=== PATIENT | male | born 1980 | race Caucasian/White ===

== ENCOUNTER 2016-12-17 18:17 | Emergency (ER) | payer OTHER ==
[2016-12-17 18:26] VITALS: BP 152/101
[2016-12-17] MEDS ORDERED: DIPH/PERTUSS(ACELL)/TETANUS VAC/PF 0.5 ML SYR (>=10YO) IM ONE (18:39)
[2016-12-17] MEDS ORDERED: HYDROCODONE/ACETAMINOPHEN 10-325 MG TABLET PO ONE (18:47)
[2016-12-17] MEDS ORDERED: LIDOCAINE 1% INJ-PF (10 MG/ML) 30 ML SDV INJ ONE ×2 (19:05→20:11)
[2016-12-17] MEDS ORDERED: CEFAZOLIN INJ 1 GM VIAL IM ONE (19:45)
--- NOTE | 2016-12-17 19:52 | RADIOLOGY REPORT (SQ) ---
EXAM DESCRIPTION: FINGER LEFT COMPLETED DATE/TIME: 12/17/2016 7:24 pm REASON FOR STUDY: table saw vs finger COMPARISON: None. NUMBER OF VIEWS: Three views. TECHNIQUE: AP, lateral, and oblique images acquired of the left 3rd digit LIMITATIONS: None. FINDINGS: MINERALIZATION: Normal. BONES: Comminuted fracture of the 3rd digit distal phalanx. No evidence of intra-articular extension . SOFT TISSUES: Marked soft tissue irregularity involving the 3rd digit distal phalanx. OTHER: No other significant finding. IMPRESSION: Open fracture of the 3rd digit distal phalanx. No evidence of intra-articular extension . COMMENT: SITE OF TRAUMA/COMPLAINT MARKED/STAMP COMPLETED: NO. TECHNICAL DOCUMENTATION: JOB ID: [id number] [employer]- All Rights Reserved
[2016-12-17] MEDS ORDERED: CEFTRIAXONE INJ 1000 MG VIAL IM ONE (20:11)
--- NOTE | 2016-12-17 20:33 | ER Document Report ---
ED General - General Chief Complaint: Laceration Stated Complaint: FINGER INJURY Time Seen by Provider: 12/17/16 18:38 Mode of Arrival: Ambulatory Information source: Patient, Friend Notes: Patient is a 36-year-old white male comes emergency room complaining of a laceration to his left middle fingertip. Patient states he was using a table saw at home he had gloves on and was cutting wood. States he thought he had a little bit too small piece to cut but attempted so anyhow and when he did patient's left middle finger went into the saw blade. Patient jerked back really quick although he did cut into the globe and saw he noticed there was a lot of bleeding he did not look at his wound wrapped in a towel and was brought to the ER. TRAVEL OUTSIDE OF THE [place] IN LAST 30 DAYS: Yes - HPI Onset: Just prior to arrival Quality of pain: Achy, Stabbing, Throbbing. 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 - Related Data Allergies/Adverse Reactions: No Known Allergies Allergy (Unverified 12/17/16 18:24) Past Medical History - General Information source: Patient - Social History Smoking Status: Never Smoker Chew tobacco use (# tins/day): No Frequency of alcohol use: Occasional Drug Abuse: None Lives with: Family Family History: None - Past Medical History Cardiac Medical History: Reports: Hx Hypertension Renal/ Medical History: Denies: Hx Peritoneal Dialysis Surgical Hx: Negative - Immunizations Hx Diphtheria, Pertussis, Tetanus Vaccination: Yes Review of Systems - Review of Systems Constitutional: No symptoms reported EENT: No symptoms reported Cardiovascular: No symptoms reported Respiratory: No symptoms reported Gastrointestinal: No symptoms reported Genitourinary: No symptoms reported Male Genitourinary: No symptoms reported Skin: Change in color, Other - Laceration left middle finger in the nail Hematologic/Lymphatic: No symptoms reported Neurological/Psychological: No symptoms reported -: Yes All other systems reviewed and negative Physical Exam - Vital signs Vitals: Temp Pulse Resp BP Pulse Ox 98.2 F 82 16 152/101 H 97 12/17/16 18:22 12/17/16 18:22 12/17/16 18:22 12/17/16 18:22 12/17/16 18:22 - General General appearance: Anxious, Other - Obvious pain or discomfort - HEENT Head: Normocephalic, Atraumatic - Respiratory Respiratory status: No respiratory distress Chest status: Nontender Breath sounds: Normal. No: Rales, Rhonchi, Stridor, Wheezing - Cardiovascular Rhythm: Regular Heart sounds: Normal auscultation Murmur: No - Extremities General upper extremity: Tender. No: Normal inspection, Normal ROM General lower extremity: Normal inspection Hand: Tender, Instability, Laceration, Nail injury, No evidence of FB, Other - Examination patient's left middle finger distal tip shows that the blade contact point was directly in the middle of the nail of the finger. It has ripped the nail of part and cut patient down through the distal phalanx. Patient still demonstrates some movement of the distal tip as well as feeling to sensation of light touch. He has decreased power with resistance application. Active range of motion does show that he can flex the distal tip slightly as well as extended. - Skin Skin Temperature: Warm Skin Moisture: Moist Skin irregularity: Laceration, other - Patient displays nail avulsion of the left middle finger. Irregularity with: Tenderness Course - Vital Signs Vital signs: Temp Pulse Resp BP Pulse Ox 98.2 F 82 16 152/101 H 97 12/17/16 18:22 12/17/16 18:22 12/17/16 18:22 12/17/16 18:22 12/17/16 18:22 - Diagnostic Test Radiology reviewed: Image reviewed, Reports reviewed - Open fracture of the distal phalanx of the left little finger also comminuted. - Transfer of Care Notes: 12/17/16 20:[address] Basurto also come take a look at it agrees with my plan of attack to clean very well M antibiotic for open fracture tach finger back as best as possible and in good dressing have patient follow-up with a hand surgeon at the [place] and also give him a #2 the hand surgeon locally. Procedures - Laceration/Wound Repair Left Distal Finger 3rd digit Time completed: 20:38 Wound length (cm): 3 Wound's Depth, Shape: Irregular, Nail-avulsed, Contused tissue Laceration pre-procedure: Sterile drapes applied, Shur-Clens applied Anesthetic type: 1% Lidocaine Volume Anesthetic (mLs): 6 Wound explored: Contaminated Irrigated w/ Saline (mLs): 1,000 Wound Debrided: Moderate Wound Repaired With: Sutures Suture Size/Type: 4:0, Ethilon, Prolene Number of Sutures: 4 Layer Closure?: No Post-procedure wound care: Sterile dressing applied, Splint applied Post-procedure NV exam normal: Yes Complications: No Notes: 12/17/16 20:40 After we are able to clean up with a focal area of the nail as stated had been reduced to bits and pieces throughout with partial pieces of bone also palpated while pulling the skin tissue back together. Was not able to close the entire area I was able to give it some support by placing for total four-point [address] and then applying a sterile dressing. Patient tolerated procedure without problem. The dressing and splint were applied by the ER nurse /PCT and checked by myself and found to be in great alignment and offered good stability. Discharge - Discharge Condition: Stable Disposition: HOME, SELF-CARE Instructions: Oral Narcotic Medication ([facility]), Laceration Care ([facility]) Additional Instructions: Avulsion Fracture You have an avulsion fracture, sometimes also called a flake or chip fracture. This type of fracture is caused by a sudden stress on a ligament or tendon. As the ligament pulls on the bone, the bone gives way, and a chip of bone cracks off. Small avulsion fractures are not usually serious. More often, the ligament injury which caused the bone chip is of greater concern. The treatment is usually the same as for a ligament or tendon injury -- that is, rest, ice, and elevation -- with careful resumption of use once the pain and swelling have resolved. For some avulsion fractures, a cast or special splint is necessary. Large avulsion fractures may even require an operation. Often the treatment plan will change depending on how well your injury progresses. Healing usually takes between three and six weeks. Future X-rays will most likely still show this bone chip, as it does not "fuse." Call the doctor or return at once if swelling and pain become severe, or if numbness develops. Home tonight And rest. Medications prescribed. As we discussed that given you both the number to the orthopedist [place] as well as to the orthopedist hand specialist here and locally. I would [facility] the [facility] at this point do not undress the wound unless you get super dirty or Superwet leave it on until you see the orthopedist. Should you have any concerns or problems should be have increased amount of pain or any concerns return to ER for a recheck. The #2 the [facility] orthopedist is [phone] Prescriptions: Cephalexin Monohydrate [Keflex 500 mg Capsule] 500 mg PO Q6H 5 Days #20 capsule Clindamycin HCl 300 mg PO QID #28 capsule Oxycodone HCl/Acetaminophen [Percocet 5-325 mg Tablet] 1 tab PO ASDIR PRN #25 tab PRN Reason: Referrals: ARI VILLANUEVA DO [Primary Care Provider] - Follow up as needed RONNY VEGAS DO [ACTIVE STAFF] - Follow up as needed
== END 2016-12-17 20:54 | disposition home or self-care (01) ==
LOC: ER 18:17
DX: S62.633B Displaced fracture of distal phalanx of left middle finger, initial encounter for open fracture (principal); W29.8XXA Contact with other powered hand tools and household machinery, initial encounter; Y93.89 Activity, other specified; Y92.009 Unspecified place in unspecified non-institutional (private) residence as the place of occurrence of the external cause; I10 Essential (primary) hypertension
CPT/HCPCS: 99283; 73140; 12002; J3490; J0696